=== PATIENT | male | born 1985 | race Hispanic/Latino ===

== ENCOUNTER 2018-07-08 08:49 | Outpatient (CLI) | payer OTHER | END 2018-07-08 08:50 | disposition home or self-care (01) | LOC: CARDIO 08:49 | DX: I42.0 Dilated cardiomyopathy (principal) ==

== ENCOUNTER 2018-07-14 18:07 | Inpatient (IN) | payer OTHER ==
[2018-07-14 19:19] VITALS: BMI 30.7
--- NOTE | 2018-07-14 19:41 | ED PDOC ---
Arrival/HPI - General Chief Complaint: Syncope Time Seen by Provider: 07/14/18 19:21 Historian: Patient - History of Present Illness Narrative History of Present Illness (Text): 07/14/18 19:20 33 year old male, whose past medical history includes CHF and cardiomyopathy, who presents to the Emergency department for evaluation following brief syncopal episode at home yesterday. Patient states he was advised to come to the [facility] by his PMD, Dr. Torres, for admission and further evaluation. Patient notes he was just kneeling down at the time of onset. Patient with a noted ejection fracture of 11% on ECHO that was done this week. Patient denies any recent trauma, chest pain, shortness of breath, headache, or dizziness. Patient currently without any complaints. PMD: Maximino Alvarez Time/Duration: Other ( Patient notes syncopal episode occurred yesterday ) Symptom Onset: Sudden Symptom Course: Unchanged Activities at Onset: Light Past Medical History - Provider Review Nursing Documentation Reviewed: Yes - Infectious Disease Hx of Infectious Diseases: None - Tetanus Immunization Tetanus Immunization: Up to Date - Past Medical History Past Medical History: No Previous - Cardiac Hx Congestive Heart Failure: Yes Hx Hypertension: Yes Other/Comment: Low EF - Psychiatric Hx Substance Use: No - Past Surgical History Past Surgical History: No Previous - Anesthesia Hx Anesthesia: No - Suicidal Assessment Feels Threatened In Home Enviroment: No Family/Social History - Physician Review Nursing Documentation Reviewed: Yes Family/Social History: No Known Family HX Smoking Status: Never Smoked Hx Alcohol Use: No Hx Substance Use: No Hx Substance Use Treatment: No Allergies/Home Meds Allergies/Adverse Reactions: Allergies acetaminophen [From Tylenol] Allergy (Verified 07/14/18 18:59) NAUSEA Home Medications: Home Meds Medication Instructions Recorded Confirmed Lisinopril [Zestril] 1 tab PO DAILY 07/14/18 07/14/18 Metoprolol Succinate XL [Toprol XL] 1 tab PO DAILY 07/14/18 07/14/18 Torsemide [Demadex] 1 tab PO DAILY 07/14/18 07/14/18 Review of Systems - Physician Review All systems were reviewed & negative as marked: Yes - Review of Systems Respiratory: Normal. absent: SOB Cardiovascular: Syncope (Patient presents for evaluation of syncopal episode at home ). absent: Normal, Chest Pain Neurological: Normal. absent: Headache, Dizziness Physical Exam Vital Signs Reviewed: Yes Vital Signs Temp Pulse Resp BP Pulse Ox 07/14/18 19:05 98.5 F 88 18 98/71 L 97 Temperature: Afebrile Blood Pressure: Hypotensive Pulse: Regular Respiratory Rate: Normal Appearance: Positive for: Well-Appearing, Non-Toxic Pain Distress: None Mental Status: Positive for: Alert and Oriented X 3 - Systems Exam Head: Present: Atraumatic, Normocephalic Pupils: Present: PERRL Extroacular Muscles: Present: EOMI Conjunctiva: Present: Normal Mouth: Present: Moist Mucous Membranes Neck: Present: Normal Range of Motion Respiratory/Chest: Present: Clear to Auscultation, Good Air Exchange. No: Respiratory Distress, Accessory Muscle Use Cardiovascular: Present: Regular Rate and Rhythm, Normal S1, S2. No: Murmurs Abdomen: No: Tenderness, Distention, Peritoneal Signs Back: Present: Normal Inspection Upper Extremity: Present: Normal Inspection. No: Cyanosis, Edema Lower Extremity: Present: Normal Inspection. No: Edema Neurological: Present: GCS=15, CN II-XII Intact, Speech Normal Skin: Present: Warm, Dry, Normal Color. No: Rashes Psychiatric: Present: Alert, Oriented x 3, Normal Insight, Normal Concentration Medical Decision Making ED Course and Treatment: 07/14/18 19:20 Impression: 33 year old male who was advised by Dr. Torres (PMD) to present to the emergency department for evaluation following brief syncopal episode at home. Differential Diagnosis included but are not limited to: Plan: -- EKG -- Labs -- X-Ray of chest -- Reassess and disposition Prior Visits: Notes and results from previous visits were reviewed. Progress Notes: 07/14/18 20:46 Chest X-Ray shows no acute process. 07/14/18 21:[address] Torres and medical translator front end software engineer. Dr. Torres agrees to have patient admitted under hospitalist services. - RAD Interpretation Radiology Orders: 07/14/18 19:27 CHEST PORTABLE [RAD] Stat - EKG Interpretation EKG Interpretation (Text): 07/14/18 EKG: Ordered, reviewed, and independently interpreted the EKG. Rate : 86 BPM Rhythm : NSR Interpretation : Prolonged QT, non-specific T-wave changes Interpreted by ED Physician: Yes Type: 12 lead EKG - Scribe Statement The provider has reviewed the documentation as recorded by the Scribe Fabiana Montoya All medical record entries made by the Dee Deeibe were at my direction and personally dictated by me. I have reviewed the chart and agree that the record accurately reflects my personal performance of the history, physical exam, medical decision making, and the department course for this patient. I have also personally directed, reviewed, and agree with the discharge instructions and disposition. Disposition/Present on Arrival - Present on Arrival Any Indicators Present on Arrival: No History of DVT/PE: No History of Uncontrolled Diabetes: No Urinary Catheter: No History of Decub. Ulcer: No History Surgical Site Infection Following: None - Disposition Have Diagnosis and Disposition been Completed?: Yes Diagnosis: Syncope Disposition: HOSPITALIZED Disposition Time: 21:12 Patient Problems: Current Active Problems Problem Status Onset Syncope Acute Condition: STABLE
[2018-07-14 20:08] LABS: HEMOGLOBIN 15.5 g/dL (14.0-18.0); MEAN CELL VOLUME 83.4 fl (80.0-105.0); MEAN CORPUSCULAR HEMOGLOBIN 29.6 pg (25.0-35.0); MEAN CORPUSCULAR HGB CONC 35.6 g/dl (31.0-37.0); MEAN PLATELET VOLUME 9.7 fl (7.0-11.0); RBC 5.23 10^6/uL (3.5-6.1); RED CELL DISTRIBUTION WIDTH 12.6 % (11.5-14.5); WHITE BLOOD COUNT 10.6 10^3/uL (4.5-11.0)
[2018-07-14 20:15] LABS: ALB/GLOB RATIO 1.5 (1.1-1.8); ALBUMIN 4.4 g/dL (3.0-4.8); ALT/SGPT 35 U/L (7-56); AST/SGOT 23 U/L (17-59); BLOOD UREA NITROGEN 18 mg/dL (7-21); CALCIUM 9.2 mg/dL (8.4-10.5); GFR NON-AFRICAN AMERICAN > 60; INR 1.11; PARTIAL THROMBOPLASTIN TIME 32.9 Seconds (26.9-38.3); PROTHROMBIN TIME 12.3 SECONDS (9.4-12.5)
[2018-07-14 20:26] LABS: TROPONIN I < 0.01 ng/mL
--- NOTE | 2018-07-14 23:02 | CP.PCM.HP ---
<VerónicajanijahAndrew - Last Filed: 07/15/18 06:13> History of Present Illness - History of Present Illness History of Present Illness: CC: "blacked out" This is a 33-year-old male with PMH of recently diagnosed HFrEF CHF, Cardiomyopathy, most recent ECHO shows EF 11%, and HTN, who presents to [facility] ED after he "blacked-out" yesterday. Patient reports that he was kneeling down to clean something in his house, when he became lightheaded and then "blacked-out." This was unwitnessed. Patient denies LOC and/or recalling that he hit his head. Patient states he was advised to come to the Emergency department by his PMD, Dr. Torres, for admission and further evaluation. Patient admits to shortness of breath when he takes 2 flights of stairs in order to get to his apartment. Patient sleeps with 1 pillow at night. Patient otherwise denies chest pain, headache, recent trauma, vertigo, nausea, vomiting, diaphoresis, fever, chills, cough and/or diarrhea. PMH: HFrEF CHF, Cardiomyopathy, HTN PSH: Patient denies Medications: zestril 5mg PO daily, Metoprolol Succinate XL 50mg PO daily, Torsemide 20mg daily Allergies: Acetaminophen --> Nausea Family Hx: positive history for early onset [place] (aunt at 46 years old from [place]); another family member had heart attack at age 32yo) Social Hx: Patient denies ETOH, Tobacco, and/or recreational drugs, Patient lives at home with his and 9 year old child, Patient used to be active as a [employer] until his most recent diagnosis of CHF. PMD: Maximino Alvarez Cardiology: Dr. Saravia Present on Admission - Present on Admission Any Indicators Present on Admission: No History of DVT/PE: No History of Uncontrolled Diabetes: No Urinary Catheter: No Decubitus Ulcer Present: No Review of Systems - Review of Systems All systems: reviewed and no additional remarkable complaints except (as mentioned in HPI) Past Patient History - Infectious Disease Hx of Infectious Diseases: None - Tetanus Immunizations Tetanus Immunization: Up to Date - Past Social History Smoking Status: Never Smoked - CARDIAC Hx Congestive Heart Failure: Yes Hx Hypertension: Yes Other/Comment: Low EF - PSYCHIATRIC Hx Substance Use: No - SURGICAL HISTORY Hx Surgeries: No - ANESTHESIA Hx Anesthesia: No Meds Allergies/Adverse Reactions: Allergies Allergy/AdvReac Type Severity Reaction Status Date / Time acetaminophen [From Tylenol] Allergy NAUSEA Verified 07/14/18 18:59 Physical Exam - Constitutional Appears: Non-toxic, No Acute Distress - Head Exam Head Exam: ATRAUMATIC, NORMAL INSPECTION, NORMOCEPHALIC - Eye Exam Eye Exam: EOMI, Normal appearance, PERRL Pupil Exam: NORMAL ACCOMODATION, PERRL - ENT Exam ENT Exam: Mucous Membranes Moist, Normal Exam - Neck Exam Neck exam: Positive for: Normal Inspection - Respiratory Exam Respiratory Exam: Clear to Auscultation Bilateral, NORMAL BREATHING PATTERN. absent: Accessory Muscle Use, Chest Wall Tenderness, Decreased Breath Sounds, Prolonged Expiratory Phase, Rales, Rhonchi, Wheezes, Respiratory Distress, Stridor - Cardiovascular Exam Cardiovascular Exam: REGULAR RHYTHM, +S1, +S2. absent: Bradycardia, Tachycardia, Clicks, Diastolic murmur, Gallop, Irregular Rhythm, JVD, Rubs, +S4, Systolic Murmur - GI/Abdominal Exam GI & Abdominal Exam: Normal Bowel Sounds, Soft, Tenderness. absent: Firm, Guarding, Rigid - Extremities Exam Extremities exam: Positive for: full ROM, normal capillary refill, normal inspection, pedal pulses present. Negative for: calf tenderness, joint swelling, pedal edema, tenderness - Back Exam Back exam: NORMAL INSPECTION - Neurological Exam Neurological exam: Alert, CN II-XII Intact, Normal Gait, Oriented x3, Reflexes Normal - Psychiatric Exam Psychiatric exam: Normal Affect, Normal Mood - Skin Skin Exam: Dry, Intact, Normal Color, Warm Results - Vital Signs Recent Vital Signs: Last Vital Signs Temp 98.5 F 07/14/18 19:05 Pulse 88 07/14/18 19:05 Resp 18 07/14/18 19:05 BP 98/71 L 07/14/18 19:05 Pulse Ox 97 07/14/18 19:05 - Labs Result Diagrams: 07/14/18 19:58 07/14/18 19:58 Labs: Laboratory Results - last 24 hr 07/14/18 07/14/18 07/14/18 19:58 19:58 19:58 WBC 10.6 RBC 5.23 Hgb 15.5 Hct 43.6 MCV 83.4 MCH 29.6 MCHC 35.6 RDW 12.6 Plt Count 278 MPV 9.7 PT 12.3 INR 1.11 APTT 32.9 Sodium 139 Potassium 3.7 Chloride 98 Carbon Dioxide 31 Anion Gap 15 BUN 18 Creatinine 0.9 Est GFR ( Amer) > 60 Est GFR (Non-Af Amer) > 60 Random Glucose 92 Calcium 9.2 Total Bilirubin 0.6 AST 23 ALT 35 Alkaline Phosphatase 110 Lactate Dehydrogenase 393 Total Creatine Kinase 41 Troponin I < 0.01 Total Protein 7.4 Albumin 4.4 Globulin 3.0 Albumin/Globulin Ratio 1.5 Assessment & Plan - Assessment and Plan (Free Text) Assessment: This is a 33-year-old male with PMH of recently diagnosed HFrEF CHF, Cardiomyopathy, most recent ECHO shows EF 11%, and HTN, who presents to [facility] ED after he "blacked-out." Syncope in the setting of recently diagnosed HFrEF - ECHO on 07/08/18 showed EF 11% (see report) - F/U CT head without contrast - CXR: no acute disease (F/U official report) - F/U: CMP, CBC, PT, PTT, - Troponin negative x1 - Troponin Q6 x2 - EKG: - EKG Q6 x2 - Pro BNP 749 - Continue Zestril 5mg PO daily home med - Continue Toprol - Continue Torsemide - Cardiology consulted (Dr. Saravia) recommendations appreciated - Monitor daily weight - Monitor I&O History of HTN - Patient is on home meds: Toprol XL 20mg PO daily and Zestril 5mg PO daily (continue) - Monitor PPx: - GI: Not indicated at this time - DVT: SCD, lovenox SC Discussed with Dr. Melissa Falk PGY1 <Jackson Torres - Last Filed: 07/15/18 10:13> Results - Vital Signs Recent Vital Signs: Last Vital Signs Temp 98.0 F 07/15/18 05:41 Pulse 85 07/15/18 08:26 Resp 20 07/15/18 05:41 BP 114/77 07/15/18 08:26 Pulse Ox 97 07/15/18 05:41 - Labs Result Diagrams: 07/14/18 19:58 07/14/18 19:58 Labs: Laboratory Results - last 24 hr 07/14/18 07/14/18 07/14/18 19:58 19:58 19:58 WBC 10.6 RBC 5.23 Hgb 15.5 Hct 43.6 MCV 83.4 MCH 29.6 MCHC 35.6 RDW 12.6 Plt Count 278 MPV 9.7 PT 12.3 INR 1.11 APTT 32.9 Sodium 139 Potassium 3.7 Chloride 98 Carbon Dioxide 31 Anion Gap 15 BUN 18 Creatinine 0.9 Est GFR ( Amer) > 60 Est GFR (Non-Af Amer) > 60 Random Glucose 92 Calcium 9.2 Magnesium Total Bilirubin 0.6 AST 23 ALT 35 Alkaline Phosphatase 110 Lactate Dehydrogenase 393 Total Creatine Kinase 41 Troponin I < 0.01 NT-Pro-B Natriuret Pep Total Protein 7.4 Albumin 4.4 Globulin 3.0 Albumin/Globulin Ratio 1.5 07/15/18 07/15/18 07/15/18 03:28 07:50 08:27 WBC RBC Hgb Hct MCV MCH MCHC RDW Plt Count MPV PT INR APTT Sodium Potassium Chloride Carbon Dioxide Anion Gap BUN Creatinine Est GFR ( Amer) Est GFR (Non-Af Amer) Random Glucose Calcium Magnesium 2.1 Total Bilirubin AST ALT Alkaline Phosphatase Lactate Dehydrogenase Total Creatine Kinase Troponin I < 0.01 < 0.01 NT-Pro-B Natriuret Pep 749 H Total Protein Albumin Globulin Albumin/Globulin Ratio Attending/Attestation - Attestation I have personally seen and examined this patient.: No I have fully participated in the care of the patient.: Yes I have reviewed all pertinent clinical information: Yes
[2018-07-15 04:11] LABS: B-TYPE NATRIURETIC PEPTIDE 749 pg/mL (0-450); TROPONIN I < 0.01 ng/mL
--- NOTE | 2018-07-15 06:50 | CT ---
Date of service: 07/14/2018 PROCEDURE: CT HEAD WITHOUT CONTRAST. HISTORY: syncope COMPARISON: None available. TECHNIQUE: Axial computed tomography images were obtained through the head/brain without intravenous contrast. Radiation dose: Total exam DLP = 857.24 mGy-cm. This CT exam was performed using one or more of the following dose reduction techniques: Automated exposure control, adjustment of the mA and/or kV according to patient size, and/or use of iterative reconstruction technique. FINDINGS: HEMORRHAGE: No intracranial hemorrhage. BRAIN: No mass effect or edema. No atrophy or chronic microvascular ischemic changes. VENTRICLES: Unremarkable. No hydrocephalus. CALVARIUM: Unremarkable. PARANASAL SINUSES: Unremarkable as visualized. No significant inflammatory changes. MASTOID AIR CELLS: Unremarkable as visualized. No inflammatory changes. OTHER FINDINGS: None. IMPRESSION: No acute intracranial abnormality. If symptoms persists, consider correlation with MRI. Preliminary report was generated at 9:49 p.m. on 07/14/[address] Adan Edouard from [facility].
[2018-07-15] MEDS: Metoprolol Succinate 50 mg XL Tab PO SCH (08:26)
[2018-07-15] MEDS ORDERED: Potassium Chloride 20 mEq/15 ml LIQ UD PO STA (08:30)
--- NOTE | 2018-07-15 09:00 | CON ---
DATE OF CONSULTATION: 07/15/2018 CARDIOLOGY CONSULTATION HISTORY: The patient is a 33-year-old male, who was sent to my office after extensive evaluation in [facility] for CHF. He was found to have a cardiomyopathy. He underwent catheterization in the [facility] where his coronary arteries were found to be unremarkable. He was placed on medication. He was asked to stop his alcohol intake, and we will reevaluate his LV function after a period of no alcohol. The patient apparently was at home a day or two ago and apparently had a syncopal episode after kneeling down. He had no other symptoms. No chest pain or shortness of breath. He has stopped drinking any alcohol at all. SOCIAL HISTORY: The patient does not smoke. No hypertension or diabetes mellitus. REVIEW OF SYSTEMS: Review of systems were essentially unremarkable other than what was presented. He is on an SERENA inhibitor, beta blockers, as well as a diuretic at home for his previous CHF symptoms. He denies shortness of breath. PHYSICAL EXAMINATION: GENERAL: The patient is in no acute distress. VITAL SIGNS: Blood pressure is 114/77, the heart rate is in the 80s. NECK: Negative JVD. LUNGS: Without rales. CARDIAC: Heart rate S1, S2. EXTREMITIES: Without edema. His previous echo revealed an ejection fraction of 11%, which was done last week. LABORATORY DATA: Hemoglobin is 15.5. Potassium is 3.7. Troponins are negative x3. There is no magnesium. IMPRESSION: 1. Syncopal episode. 2. It is clear whether the syncopal episode is due to orthostatic changes versus ventricular arrhythmias, in which he is at high risk for 3. History of congestive heart failure. 4. Nonischemic cardiomyopathy. PLAN: Given these findings, I have called Dr. Ortiz, who is an salesperson art objects, to evaluate the patient for possible defibrillator placement. In the meantime, we will check his magnesium level. After his magnesium level, we will consider a LifeVest for the patient to go home on, and the patient is currently hemodynamically stable. Jacob Saravia MD
--- NOTE | 2018-07-15 09:37 | RAD ---
Date of service: 07/14/2018 HISTORY: syncope COMPARISON: No prior. FINDINGS: LUNGS: No active pulmonary disease. PLEURA: No significant pleural effusion identified, no pneumothorax apparent. CARDIOVASCULAR: No aortic atherosclerotic calcification present. Normal cardiac size. No pulmonary vascular congestion. OSSEOUS STRUCTURES: No significant abnormalities. VISUALIZED UPPER ABDOMEN: Normal. OTHER FINDINGS: None. IMPRESSION: No active disease.
[2018-07-15] MEDS: Enoxaparin 40 mg Syringe SC SCH (10:05)
--- NOTE | 2018-07-15 11:02 | CARD ---
APPROVED REPORT Date of service: 07/14/2018 EKG Measurement Heart [id number] <Conclusion> Normal sinus rhythm Nonspecific T wave abnormality Abnormal ECG
--- NOTE | 2018-07-15 11:35 | CP.PCM.CON ---
History of Present Illness - History of Present Illness History of Present Illness: Neurology Consultation Note: Consult requested by Dr. Rodriguez Mr. Pepe is a 33-year-old man who was recently diagnosed with CHF, Cardiom yopathy with recent EF of 11%, who presented to the ED yesterday after he bent down to clean something and "blacked out". Neurology was consulted to rule out any potential neurological causes. CT scan of the head was normal. The patient is currently at baseline. Review of Systems - Review of Systems All systems: reviewed and no additional remarkable complaints except Past Patient History - Infectious Disease Hx of Infectious Diseases: None - Tetanus Immunizations Tetanus Immunization: Up to Date - Past Social History Smoking Status: Never Smoked - CARDIAC Hx Congestive Heart Failure: Yes Hx Hypertension: Yes Other/Comment: Low EF - MUSCULOSKELETAL/RHEUMATOLOGICAL Hx Falls: Yes (07/13/18 Syncope) - PSYCHIATRIC Hx Substance Use: No - SURGICAL HISTORY Hx Surgeries: No - ANESTHESIA Hx Anesthesia: No Meds Allergies/Adverse Reactions: Allergies Allergy/AdvReac Type Severity Reaction Status Date / Time acetaminophen [From Tylenol] Allergy NAUSEA Verified 07/14/18 18:59 - Medications Medications: Current Medications Enoxaparin Sodium (Lovenox) 40 mg SC DAILY [facility]; Protocol Last Admin: 07/15/18 10:05 Dose: 40 mg Lisinopril (Zestril) 5 mg PO DAILY [facility] Last Admin: 07/15/18 10:04 Dose: 5 mg Metoprolol Succinate (Toprol Xl) 50 mg PO BRK [facility] Last Admin: 07/15/18 08:26 Dose: 50 mg Torsemide (Demadex) 20 mg PO DAILY [facility] Last Admin: 07/15/18 10:05 Dose: 20 mg Physical Exam - Constitutional Appears: Well - Head Exam Head Exam: ATRAUMATIC, NORMAL INSPECTION, NORMOCEPHALIC - Eye Exam Eye Exam: EOMI, Normal appearance, PERRL Pupil Exam: NORMAL ACCOMODATION, PERRL - ENT Exam ENT Exam: Mucous Membranes Moist, Normal Exam - Neck Exam Neck exam: Positive for: Normal Inspection - Respiratory Exam Respiratory Exam: Clear to Auscultation Bilateral, NORMAL BREATHING PATTERN - Cardiovascular Exam Cardiovascular Exam: REGULAR RHYTHM, +S1, +S2 - GI/Abdominal Exam GI & Abdominal Exam: Normal Bowel Sounds, Soft. absent: Tenderness - Extremities Exam Extremities exam: Positive for: normal inspection - Back Exam Back exam: NORMAL INSPECTION - Neurological Exam Neurological exam: Alert, CN II-XII Intact, Normal Gait, Oriented x3, Reflexes Normal - Psychiatric Exam Psychiatric exam: Normal Affect, Normal Mood - Skin Skin Exam: Dry, Intact, Normal Color, Warm Results - Vital Signs Recent Vital Signs: Last Vital Signs Temp 98.0 F 07/15/18 05:41 Pulse 77 07/15/18 10:04 Resp 20 07/15/18 05:41 BP 112/65 07/15/18 10:04 Pulse Ox 97 07/15/18 05:41 - Labs Result Diagrams: 07/14/18 19:58 07/14/18 19:58 Labs: Laboratory Results - last 24 hr 07/14/18 07/14/18 07/14/18 19:58 19:58 19:58 WBC 10.6 RBC 5.23 Hgb 15.5 Hct 43.6 MCV 83.4 MCH 29.6 MCHC 35.6 RDW 12.6 Plt Count 278 MPV 9.7 PT 12.3 INR 1.11 APTT 32.9 Sodium 139 Potassium 3.7 Chloride 98 Carbon Dioxide 31 Anion Gap 15 BUN 18 Creatinine 0.9 Est GFR ( Amer) > 60 Est GFR (Non-Af Amer) > 60 Random Glucose 92 Calcium 9.2 Magnesium Total Bilirubin 0.6 AST 23 ALT 35 Alkaline Phosphatase 110 Lactate Dehydrogenase 393 Total Creatine Kinase 41 Troponin I < 0.01 NT-Pro-B Natriuret Pep Total Protein 7.4 Albumin 4.4 Globulin 3.0 Albumin/Globulin Ratio 1.5 07/15/18 07/15/18 07/15/18 03:28 07:50 08:27 WBC RBC Hgb Hct MCV MCH MCHC RDW Plt Count MPV PT INR APTT Sodium Potassium Chloride Carbon Dioxide Anion Gap BUN Creatinine Est GFR ( Amer) Est GFR (Non-Af Amer) Random Glucose Calcium Magnesium 2.1 Total Bilirubin AST ALT Alkaline Phosphatase Lactate Dehydrogenase Total Creatine Kinase Troponin I < 0.01 < 0.01 NT-Pro-B Natriuret Pep 749 H Total Protein Albumin Globulin Albumin/Globulin Ratio Assessment & Plan (1) Syncope Assessment and Plan: Likely vaso-vagal or due to significant cardiac dysfunction and low perfusion to the brain upon rising resulting in syncope. Neurologically the patient is intact. There are no further recommendations from a neurological perspective. Thank you for the consultation. Status: Acute
--- NOTE | 2018-07-15 12:01 | CP.PCM.PN ---
<Dickson Knowles - Last Filed: 07/15/18 14:06> Subjective - Date & Time of Evaluation Date of Evaluation: 07/15/18 Time of Evaluation: 11:58 - Subjective Subjective: Medicine Progress Note for Dr. Rodriguez 33M seen and evaluated at bedside this morning. No acute events overnight. No complaints this morning. Patient denies chest pain or shortness of breath. Denies f/c, n/v/d, headaches, dizziness, lightheadedness, or urinary symptoms. Objective - Vital Signs/Intake and Output Vital Signs (last 24 hours): Temp Pulse Resp BP Pulse Ox 98.0 F 77 20 112/65 97 07/15/18 05:41 07/15/18 10:04 07/15/18 05:41 07/15/18 10:04 07/15/18 05:41 Intake and Output: 07/15/18 07/15/18 06:59 18:59 Intake Total 180 Balance 180 - Medications Medications: Current Medications Enoxaparin Sodium (Lovenox) 40 mg SC DAILY [facility]; Protocol Last Admin: 07/15/18 10:05 Dose: 40 mg Lisinopril (Zestril) 5 mg PO DAILY [facility] Last Admin: 07/15/18 10:04 Dose: 5 mg Metoprolol Succinate (Toprol Xl) 50 mg PO K [facility] Last Admin: 07/15/18 08:26 Dose: 50 mg Torsemide (Demadex) 20 mg PO DAILY [facility] Last Admin: 07/15/18 10:05 Dose: 20 mg - Labs Labs: 07/14/18 19:58 07/14/18 19:58 PT 12.3 SECONDS (9.4-12.5) 07/14/18 19:58 INR 1.11 07/14/18 19:58 APTT 32.9 Seconds (26.9-38.3) 07/14/18 19:58 - Constitutional Appears: Well, Non-toxic, No Acute Distress - Head Exam Head Exam: ATRAUMATIC, NORMAL INSPECTION, NORMOCEPHALIC - Eye Exam Eye Exam: EOMI - ENT Exam ENT Exam: Mucous Membranes Moist - Respiratory Exam Respiratory Exam: NORMAL BREATHING PATTERN. absent: Respiratory Distress - Cardiovascular Exam Cardiovascular Exam: REGULAR RHYTHM. absent: Tachycardia, Murmur - GI/Abdominal Exam GI & Abdominal Exam: Soft, Normal Bowel Sounds. absent: Tenderness - Extremities Exam Extremities Exam: absent: Pedal Edema - Neurological Exam Neurological Exam: Alert, Awake, Oriented x3 - Psychiatric Exam Psychiatric exam: Normal Affect, Normal Mood - Skin Skin Exam: Dry, Intact, Normal Color, Warm Assessment and Plan - Assessment and Plan (Free Text) Assessment: 33M, PMH of recently diagnosed HFrEF (ECHO shows EF of 11%), Cardiomyopathy, and HTN, admitted for syncopal episode and further cardiology workup. Plan: Syncope in the setting of recently diagnosed HFrEF - ECHO on 07/08/18 showed EF 11% - CT head w/o contrast - negative for acute pathology - CXR: no acute disease - Troponin negative x3 - EKG: NSR - Pro BNP 749 - Continue Zestril 5mg PO, Toprol, Torsemide - Cardiology consulted (Dr. Saravia) - consulted Dr. Mccrary, education teacher for possible defibrillator. Recommend Lifevest. - Neurology consulted (Dr. Cyo) - likely vaso-vagal vs. 2/2 HF. No further neurological intervention indicated. - Monitor daily weight - Monitor I&O History of HTN - Patient is on home meds: Toprol XL 20mg PO daily and Zestril 5mg PO daily (continue) - Continue to Monitor PPx: - GI: Not indicated at this time - DVT: SCD, lovenox SC Patient plan discussed with Dr. Michael Knowles PGY1 <Jaclyn Rodriguez - Last Filed: 07/15/18 14:58> Objective - Vital Signs/Intake and Output Vital Signs (last 24 hours): Temp Pulse Resp BP Pulse Ox 98.0 F 91 H 21 126/74 97 07/15/18 12:00 07/15/18 12:00 07/15/18 12:00 07/15/18 12:00 07/15/18 05:41 Intake and Output: 07/15/18 07/15/18 06:59 18:59 Intake Total 180 Balance 180 - Medications Medications: Current Medications Enoxaparin Sodium (Lovenox) 40 mg SC DAILY [facility]; Protocol Last Admin: 07/15/18 10:05 Dose: 40 mg Lisinopril (Zestril) 5 mg PO DAILY [facility] Last Admin: 07/15/18 10:04 Dose: 5 mg Metoprolol Succinate (Toprol Xl) 50 mg PO BRK [facility] Last Admin: 07/15/18 08:26 Dose: 50 mg Torsemide (Demadex) 20 mg PO DAILY [facility] Last Admin: 07/15/18 10:05 Dose: 20 mg - Labs Labs: 07/14/18 19:58 07/14/18 19:58 PT 12.3 SECONDS (9.4-12.5) 07/14/18 19:58 INR 1.11 07/14/18 19:58 APTT 32.9 Seconds (26.9-38.3) 07/14/18 19:58 Attending/Attestation - Attestation I have personally seen and examined this patient.: Yes I have fully participated in the care of the patient.: Yes I have reviewed all pertinent clinical information, including history, physical exam and plan: Yes Notes (Text): 07/15/18 14:55 33 year old male with past medical history of hypertension, strong family history of [place] and history of recently diagnosed cardiomyopathy (EF of 11%) who presented after syncopal episode. CT head was negative for acute findings. Cardiology and neurology evaluations were appreciated. EPS evaluation is requested for possible defibrillator / life vest placement. Jaclyn Rodriguez MD Hospitalist.
--- NOTE | 2018-07-15 16:15 | CARD ---
APPROVED REPORT Date of service: 07/15/2018 EKG Measurement Heart [id number] <Conclusion> Normal sinus rhythm Nonspecific T wave abnormality Abnormal ECG
[2018-07-16 05:23] VITALS: RESP 20; O2SAT 98
[2018-07-16 06:58] VITALS: TEMP 98.3
[2018-07-16 07:31] LABS: HEMOGLOBIN 14.7 g/dL (14.0-18.0); MEAN CELL VOLUME 84.3 fl (80.0-105.0); MEAN CORPUSCULAR HEMOGLOBIN 28.8 pg (25.0-35.0); MEAN CORPUSCULAR HGB CONC 34.1 g/dl (31.0-37.0); RBC 5.11 10^6/uL (3.5-6.1); RED CELL DISTRIBUTION WIDTH 12.6 % (11.5-14.5); WHITE BLOOD COUNT 10.1 10^3/uL (4.5-11.0)
[2018-07-16 07:44] LABS: BLOOD UREA NITROGEN 18 mg/dL (7-21); CALCIUM 9.2 mg/dL (8.4-10.5); GFR NON-AFRICAN AMERICAN > 60
[2018-07-16] MEDS: Metoprolol Succinate 50 mg XL Tab PO SCH (09:37)
[2018-07-16] MEDS: Enoxaparin 40 mg Syringe SC SCH (09:37)
[2018-07-16 09:38] VITALS: BP 114/72; PULSE 77
--- NOTE | 2018-07-16 14:20 | CP.PCM.DIS ---
<SrikanthJovon R - Last Filed: 07/16/18 14:14> Provider - Provider Date of Admission: 07/15/18 12:06 Attending physician: Jaclyn Rodriguez MD Primary care physician: PMD: Dr Torres Consults: 07/15/18 01:46 Cardiology Consult Routine Comment: Consulting Provider: Jacob Saravia Consulting Physician: Jacob Saravia Reason for Consult: s/p syncope Neurology Consult Routine Comment: Consulting Provider: Bernard Coy Consulting Physician: Bernard Coy Reason for Consult: s/p syncope 07/15/18 03:59 Transition In Care/Readmission Reduction Routine Comment: History of CHF Physician Instructions: Reason For Exam: Protocol 07/15/18 12:28 Physician Consult Routine Comment: Consulting Provider: Richy Barnhart Consulting Physician: Richy Barnhart Reason for Consult: Defibrillator Time Spent in preparation of Discharge (in minutes): 32 Diagnosis - Discharge Diagnosis (1) Syncope Status: Resolved Priority: High Hospital Course - Lab Results Lab Results: Most Recent Lab Values WBC 10.1 10^3/uL (4.5-11.0) 07/16/18 07:00 RBC 5.11 10^6/uL (3.5-6.1) 07/16/18 07:00 Hgb 14.7 g/dL (14.0-18.0) 07/16/18 07:00 Hct 43.1 % (42.0-52.0) 07/16/18 07:00 MCV 84.3 fl (80.0-105.0) 07/16/18 07:00 MCH 28.8 pg (25.0-35.0) 07/16/18 07:00 MCHC 34.1 g/dl (31.0-37.0) 07/16/18 07:00 RDW 12.6 % (11.5-14.5) 07/16/18 07:00 Plt Count 268 10^3/uL (120.0-450.0) 07/16/18 07:00 MPV 10.0 fl (7.0-11.0) 07/16/18 07:00 PT 12.3 SECONDS (9.4-12.5) 07/14/18 19:58 INR 1.11 07/14/18 19:58 APTT 32.9 Seconds (26.9-38.3) 07/14/18 19:58 Sodium 140 mmol/L (132-148) 07/16/18 07:00 Potassium 3.7 mmol/L (3.6-5.0) 07/16/18 07:00 Chloride 101 mmol/L (98-107) 07/16/18 07:00 Carbon Dioxide 30 mmol/L (21-33) 07/16/18 07:00 Anion Gap 13 (10-20) 07/16/18 07:00 BUN 18 mg/dL (7-21) 07/16/18 07:00 Creatinine 0.9 mg/dl (0.8-1.5) 07/16/18 07:00 Est GFR ( Amer) > 60 07/16/18 07:00 Est GFR (Non-Af Amer) > 60 07/16/18 07:00 Random Glucose 85 mg/dL (70-110) 07/16/18 07:00 Calcium 9.2 mg/dL (8.4-10.5) 07/16/18 07:00 Magnesium 2.1 mg/dL (1.7-2.2) 07/15/18 08:27 Total Bilirubin 0.6 mg/dL (0.2-1.3) 07/14/18 19:58 AST 23 U/L (17-59) 07/14/18 19:58 ALT 35 U/L (7-56) 07/14/18 19:58 Alkaline Phosphatase 110 U/L (38-126) 07/14/18 19:58 Lactate Dehydrogenase 393 U/L (333-699) 07/14/18 19:58 Total Creatine Kinase 41 U/L (35-230) 07/14/18 19:58 Troponin I < 0.01 ng/mL 07/15/18 07:50 NT-Pro-B Natriuret Pep 749 pg/mL (0-450) H 07/15/18 03:28 Total Protein 7.4 g/dL (5.8-8.3) 07/14/18 19:58 Albumin 4.4 g/dL (3.0-4.8) 07/14/18 19:58 Globulin 3.0 gm/dL 07/14/18 19:58 Albumin/Globulin Ratio 1.5 (1.1-1.8) 07/14/18 19:58 - Hospital Course Hospital Course: CC: "blacked out" This is a 33-year-old male with PMH of recently diagnosed HFrEF CHF, Cardiomyopathy, most recent ECHO shows EF 11%, and HTN, who presents to [facility] ED after he "blacked-out" yesterday. Patient reports that he was kneeling down to clean something in his house, when he became lightheaded and then "blacked-out." This was unwitnessed. Patient denies LOC and/or recalling that he hit his head. Patient states he was advised to come to the Emergency department by his PMD, Dr. Torres, for admission and further evaluation. Patient admits to shortness of breath when he takes 2 flights of stairs in order to get to his apartment. Patient sleeps with 1 pillow at night. Patient otherwise denies chest pain, headache, recent trauma, vertigo, nausea, vomiting, diaphoresis, fever, chills, cough and/or diarrhea. PMH: HFrEF CHF, Cardiomyopathy, HTN PSH: Patient denies Medications: zestril 5mg PO daily, Metoprolol Succinate XL 50mg PO daily, Torsemide 20mg daily Allergies: Acetaminophen --> Nausea Family Hx: positive history for early onset [place] (aunt at 46 years old from [place]); another family member had heart attack at age 32yo) Social Hx: Patient denies ETOH, Tobacco, and/or recreational drugs, Patient lives at home with his and 9 year old child, Patient used to be active as a [employer] until his most recent diagnosis of CHF. PMD: Maximino Alvarez Cardiology: Dr. Saravia HOSPITAL COURSE: Patient was evaluated by neurology, Dr Coy who stated syncopal episode was likely vaso-vagal or due to significant cardiac dysfunction and low perfusion to the brain upon rising resulting in syncope. CT head w/o contrast negative for acute pathology. Cardiology was consulted, Dr Saravia, who discussed with EP Dr Barnhart for possible defibrillator placement outpatient. While he was here patient was fitted for lifevest and instructions were given by lifevest client service representative. He was discharged with the lifevest. All his home meds were continued which included zestril, toprol and torsemide. Instructions provided by Dr Saravia and patient will f/u with Dr Saravia in 2-3 weeks. Discharge Exam - Head Exam Head Exam: ATRAUMATIC, NORMAL INSPECTION, NORMOCEPHALIC - Additional Findings Additional findings: - Constitutional Appears: Non-toxic, No Acute Distress - Head Exam Head Exam: ATRAUMATIC, NORMAL INSPECTION, NORMOCEPHALIC - Eye Exam Eye Exam: EOMI, Normal appearance, PERRL Pupil Exam: NORMAL ACCOMODATION, PERRL - ENT Exam ENT Exam: Mucous Membranes Moist, Normal Exam - Neck Exam Neck exam: Positive for: Normal Inspection - Respiratory Exam Respiratory Exam: Clear to Auscultation Bilateral, NORMAL BREATHING PATTERN. absent: Accessory Muscle Use, Chest Wall Tenderness, Decreased Breath Sounds, Prolonged Expiratory Phase, Rales, Rhonchi, Wheezes, Respiratory Distress, Stridor - Cardiovascular Exam Cardiovascular Exam: REGULAR RHYTHM, +S1, +S2. absent: Bradycardia, Tachycardia, Clicks, Diastolic murmur, Gallop, Irregular Rhythm, JVD, Rubs, +S4, Systolic Murmur - GI/Abdominal Exam GI & Abdominal Exam: Normal Bowel Sounds, Soft, Tenderness. absent: Firm, G uarding, Rigid - Extremities Exam Extremities exam: Positive for: full ROM, normal capillary refill, normal inspection, pedal pulses present. Negative for: calf tenderness, joint swelling, pedal edema, tenderness - Back Exam Back exam: NORMAL INSPECTION - Neurological Exam Neurological exam: Alert, CN II-XII Intact, Normal Gait, Oriented x3, Reflexes Normal - Psychiatric Exam Psychiatric exam: Normal Affect, Normal Mood - Skin Skin Exam: Dry, Intact, Normal Color, Warm Discharge Plan - Follow Up Plan Condition: STABLE Disposition: HOME/ ROUTINE Instructions: Alcohol Use - When Is Drinking a Problem?, Syncope (DC) Additional Instructions: *Follow up with Dr. Saravia in 2 to 3 weeks *Alcohol cessation *Wear Life vest as instructed *Continue home meds as prescribed - zestril, toprol, torsemide *If symptoms return, please go promptly to your nearest emergency department Referrals: Jacob Saravia MD [Staff Provider] - Clinical Quality Measures - CQM - Heart Failure Ejection Fraction: Less Than 40 % SERENA Inhibitor Prescribed: Yes Beta-Terri Prescribed: Metoprolol Succinate Will be discharged to: Home Follow Up Date (must be within 7 days from discharge): 07/22/18 <Jaclyn Rodriguez - Last Filed: 07/16/18 16:24> Provider - Provider Date of Admission: 07/15/18 12:06 Attending physician: Jaclyn Rodriguez MD Consults: 07/15/18 01:46 Cardiology Consult Routine Comment: Consulting Provider: Jacob Saravia Consulting Physician: Jacob Saravia Reason for Consult: s/p syncope Neurology Consult Routine Comment: Consulting Provider: Bernard Coy Consulting Physician: Bernard Coy Reason for Consult: s/p syncope 07/15/18 03:59 Transition In Care/Readmission Reduction Routine Comment: History of CHF Physician Instructions: Reason For Exam: Protocol 07/15/18 12:28 Physician Consult Routine Comment: Consulting Provider: Richy Barnhart Consulting Physician: Richy Barnhart Reason for Consult: Defibrillator Time Spent in preparation of Discharge (in minutes): 35 Hospital Course - Lab Results Lab Results: Most Recent Lab Values WBC 10.1 10^3/uL (4.5-11.0) 07/16/18 07:00 RBC 5.11 10^6/uL (3.5-6.1) 07/16/18 07:00 Hgb 14.7 g/dL (14.0-18.0) 07/16/18 07:00 Hct 43.1 % (42.0-52.0) 07/16/18 07:00 MCV 84.3 fl (80.0-105.0) 07/16/18 07:00 MCH 28.8 pg (25.0-35.0) 07/16/18 07:00 MCHC 34.1 g/dl (31.0-37.0) 07/16/18 07:00 RDW 12.6 % (11.5-14.5) 07/16/18 07:00 Plt Count 268 10^3/uL (120.0-450.0) 07/16/18 07:00 MPV 10.0 fl (7.0-11.0) 07/16/18 07:00 PT 12.3 SECONDS (9.4-12.5) 07/14/18 19:58 INR 1.11 07/14/18 19:58 APTT 32.9 Seconds (26.9-38.3) 07/14/18 19:58 Sodium 140 mmol/L (132-148) 07/16/18 07:00 Potassium 3.7 mmol/L (3.6-5.0) 07/16/18 07:00 Chloride 101 mmol/L (98-107) 07/16/18 07:00 Carbon Dioxide 30 mmol/L (21-33) 07/16/18 07:00 Anion Gap 13 (10-20) 07/16/18 07:00 BUN 18 mg/dL (7-21) 07/16/18 07:00 Creatinine 0.9 mg/dl (0.8-1.5) 07/16/18 07:00 Est GFR ( Amer) > 60 07/16/18 07:00 Est GFR (Non-Af Amer) > 60 07/16/18 07:00 Random Glucose 85 mg/dL (70-110) 07/16/18 07:00 Calcium 9.2 mg/dL (8.4-10.5) 07/16/18 07:00 Magnesium 2.1 mg/dL (1.7-2.2) 07/15/18 08:27 Total Bilirubin 0.6 mg/dL (0.2-1.3) 07/14/18 19:58 AST 23 U/L (17-59) 07/14/18 19:58 ALT 35 U/L (7-56) 07/14/18 19:58 Alkaline Phosphatase 110 U/L (38-126) 07/14/18 19:58 Lactate Dehydrogenase 393 U/L (333-699) 07/14/18 19:58 Total Creatine Kinase 41 U/L (35-230) 07/14/18 19:58 Troponin I < 0.01 ng/mL 07/15/18 07:50 NT-Pro-B Natriuret Pep 749 pg/mL (0-450) H 07/15/18 03:28 Total Protein 7.4 g/dL (5.8-8.3) 07/14/18 19:58 Albumin 4.4 g/dL (3.0-4.8) 07/14/18 19:58 Globulin 3.0 gm/dL 07/14/18 19:58 Albumin/Globulin Ratio 1.5 (1.1-1.8) 07/14/18 19:58 Attending/Attestation - Attestation I have personally seen and examined this patient.: Yes I have fully participated in the care of the patient.: Yes I have reviewed all pertinent clinical information, including history, physical exam and plan: Yes Notes (Text): 07/16/18 16:22 33 year old male with past medical history of hypertension, strong family history of [place] and history of recently diagnosed cardiomyopathy (EF of 11%) who presented after syncopal episode. CT head was negative for acute findings. Cardiology and neurology evaluations were appreciated. LiveVest was placed. Patient is discharged home to follow up with pmd. Follow up with roof bolter helper, Dr. Saravia. Follow up with EPS for evaluation of defibrillator. He was counselled on alcohol abstinence. Jaclyn Rodriguez MD Hospitalist.
--- NOTE | 2018-07-16 14:45 | PN ---
DATE: 07/16/2018 CARDIOLOGY FOLLOWUP SUBJECTIVE: The patient is without complaints. PHYSICAL EXAMINATION: VITAL SIGNS: Blood pressure is 114/72, the heart rates in the 70s. NECK: Negative JVD. LUNGS: Without rales. HEART: Reveals S1 and S2. EXTREMITIES: Without edema. LABORATORY DATA: Troponins are negative. BUN and creatinine are unremarkable. Potassium is 3.7, magnesium is 2.1. IMPRESSION: 1. Nonischemic dilated cardiomyopathy. 2. Status post syncope. 3. End-stage cardiomyopathy. Given these findings, the patient had a LifeVest placed last night. The patient can be discharged. The plans for him are he will go home on the LifeVest. We will refer him to an communication lecturer to get him qualified for an implantable defibrillator. If his left ventricle does not improve over the course of several months off alcohol, we will consider enrolling him and have discussions with him about referral to a heart transplant program. Jacob Saravia MD
== END 2018-07-16 13:57 | disposition home or self-care (01) | DRG 312 ==
LOC: ED 18:07 → ERH 21:12 → INTOOBSV 21:12 → OBSVTOIN 21:12 → ERH 23:16 → 2RNO 07-15 01:42 → OBSVTOIN 07-15 12:06
PROVIDERS: ADMIT Hospitalist; ATTEND Internal Medicine
DX: R55 Syncope and collapse (principal); I50.22 Chronic systolic (congestive) heart failure; I42.0 Dilated cardiomyopathy; I11.0 Hypertensive heart disease with heart failure; Z79.899 Other long term (current) drug therapy; Z82.49 Family history of ischemic heart disease and other diseases of the circulatory system; Z88.6 Allergy status to analgesic agent

== ENCOUNTER 2018-08-25 07:08 | Outpatient (CLI) | payer OTHER | END 2018-08-25 07:09 | disposition home or self-care (01) | LOC: CARDIO 07:08 | DX: I42.0 Dilated cardiomyopathy (principal) ==